=== PATIENT | male | born 1990 | race Caucasian/White ===

== ENCOUNTER 2018-01-29 21:22 | Emergency (ER) | payer OTHER ==
[2018-01-29 21:34] VITALS: BP 128/78; PULSE 58; RESP 18; TEMP 98.5; O2SAT 99
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
== END 2018-01-29 22:27 | disposition home or self-care (01) ==
LOC: C.ER 21:22 → SUPCPDRO 21:22 → C.ER 22:27
DX: S80.02XA Contusion of left knee, initial encounter (principal); V89.2XXA Person injured in unspecified motor-vehicle accident, traffic, initial encounter